=== PATIENT | male | born 1990 | race African-American/Black ===

== ENCOUNTER 2016-10-15 16:00 | Emergency (ER) | payer SELFPAY ==
[~2016-10-15] VITALS: Ht 175.3 cm; Wt 60.0 kg
[~2016-10-15 16:00] MED LIST: ALBU0.08 NEB; ALBUAER3 INH; PRED20 PO; VENTAER INH
[2016-10-15 16:02] VITALS: BP 125/73; PULSE 88; RESP 20; TEMP 98.4; O2SAT 98
[2016-10-15] MEDS ORDERED: predniSONE 50 MG TAB PO ONE (17:00)
--- NOTE | 2016-10-15 17:00 | PD ---
HPI Chief Complaint: Respiratory Symptoms Time Seen by Provider: 16:55 Travel History International Travel<30 days: No Contact w/Intl Traveler<30days: No Traveled to known affect area: No History of Present Illness HPI 26-year-old male with history of asthma here for evaluation of shortness of breath. Patient reports that the symptoms started yesterday. He feels as though his asthma is acting up. He tried albuterol at home without any improvement. No fevers, chills, or recent illness. He has a slight cough productive of clear phlegm. No hemoptysis. No CP. PFSH Past Medical History Asthma: Yes Autoimmune Disease: No Blood Disorders: No Anxiety: No Depression: No Cancer: No Cardiovascular Problems: No Cystic Fibrosis: No Diabetes: No Diminished Hearing: No Endocrine: No Gastrointestinal Disorders: No Genitourinary: No Heparin Induced Thrombocytopen: No Immune Disorder: No Implanted Vascular Access Dvce: No Musculoskeletal: No Neurologic: No Psychiatric: No Reproductive: No Respiratory: Yes (asthma) Immunizations Current: Yes Sickle Cell Disease: No Sleep Apnea: No Thyroid Disease: No Past Surgical History Other Surgery: No Social History Alcohol Use: Yes Tobacco Use: No (quit a year ago) Substance Use: Yes (marijuana) Allergies-Medications (Allergen,Severity, Reaction): Coded Allergies: No Known Allergies (Verified , 03/06/16) Reported Meds & Prescriptions Reported Meds & Active Scripts Active Albuterol Neb (Albuterol Sulfate) 2.5 Mg/3 Ml Neb 2.5 Mg NEB Q4HR NEB PRN While awake Review of Systems Except as stated in HPI: all other systems reviewed are Neg Physical Exam Narrative GENERAL: Well-developed, well-nourished, comfortable, on cell phone, no apparent distress. SKIN: Focused skin assessment warm/dry. HEAD: Atraumatic. Normocephalic. EYES: Pupils equal and round. No scleral icterus. No injection or drainage. ENT: Mucous membranes pink and moist. NECK: Trachea midline. No JVD. CARDIOVASCULAR: Regular rate and rhythm. RESPIRATORY: No accessory muscle use. No respiratory distress. Slight inspiratory Wheezes bilaterally. No rales or rhonchi. GASTROINTESTINAL: Abdomen soft, non-tender, nondistended. Hepatic and splenic margins not palpable. MUSCULOSKELETAL: No obvious deformities. No clubbing. No cyanosis. No edema. NEUROLOGICAL: Awake and alert. No obvious cranial nerve deficits. Motor grossly within normal limits. Normal speech. PSYCHIATRIC: Appropriate mood and affect; insight and judgment normal. Data Data Last Documented VS Vital Signs Date Time Temp Pulse Resp B/P Pulse Ox O2 Delivery O2 Flow Rate FiO2 10/15/16 16:47 95 Room Air 10/15/16 16:02 98.4 88 20 125/73 Orders Albuterol-Ipratropium Neb (Duoneb Neb) (10/15/16 17:00) Prednisone (Deltasone) (10/15/16 17:00) [facility] Medical Decision Making Medical Screen Exam Complete: Yes Emergency Medical Condition: Yes Medical Record Reviewed: Yes Differential Diagnosis Asthma exacerbation, pneumonia, bronchitis, PE unlikely Narrative Course Vital signs reviewed. The patient was given 3 DuoNeb treatments and 50 mg oral prednisone. On reassessment he states he is feeling much better. He was never in respiratory distress, and remains to be in no distress while in the emergency department. On reassessment his lung sounds are clear. He is stable for discharge home with outpatient follow-up with a primary care physician this week. He'll be discharged home with a perception for prednisone as well as albuterol. He was informed on when to return to the emergency department. He verbalizes understanding and agreement with plan. Diagnosis Primary Impression: Asthma exacerbation Referrals: [facility] 3 days Additional Instructions: Follow-up with a primary care physician this week. Return to the emergency department for worsening symptoms or any other concerns. Scripts Prednisone 50 Mg Tab50 Mg PO DAILY 5 Days Ref 0 Prov:Krishan Cho MD 10/15/16 Albuterol 18 GM Inh (Ventolin Hfa 18 GM Inh)90 Mcg/Act Aer2 Puff INH Q4-6H PRN ( SHORTNESS OF BREATH) #1 INHALER Ref 0 Prov:Krishan Cho MD 10/15/16 Disposition: 01 DISCHARGE HOME Condition: Stable Krishan Cho MD Oct 15, 2016 17:00
[2016-10-15] MEDS: RESP: ALBUTEROL 2.5 MG/IPRATROPIUM 0.5 MG NEB (SCH) INH (17:41)
[2016-10-15] MEDS ORDERED: VENTAER INH (18:18)
[2016-10-15] MEDS ORDERED: PRED50 PO (18:18)
== END 2016-10-15 18:32 | disposition home or self-care (01) ==
LOC: NEPD 16:00
DX: J45.901 Unspecified asthma with (acute) exacerbation (principal); R05 Cough; Z79.51 Long term (current) use of inhaled steroids; Z87.891 Personal history of nicotine dependence
CPT/HCPCS: 94640; 94664; 99284; J7512